=== PATIENT | female | born 1990 ===

== ENCOUNTER 2019-04-03 16:51 | Emergency (ER) | payer BC ==
[2019-04-03] MEDS: LORAZEPAM 1 MG TAB PO (18:50)
[2019-04-03] MEDS: IBUPROFEN 600 MG TAB PO (18:51)
== END 2019-04-03 20:20 | disposition home or self-care (01) ==
LOC: FTE 16:51
DX: S05.12XA Contusion of eyeball and orbital tissues, left eye, initial encounter (principal); Y09 Assault by unspecified means
CPT/HCPCS: 70480; 81025; 99284-25